=== PATIENT | female | born 1960 | race Caucasian/White ===

== ENCOUNTER 2021-11-15 14:08 | Emergency (ER) | payer SELFPAY ==
[~2021-11-15] VITALS: Ht 170.2 cm; Wt 99.8 kg
[2021-11-15] MEDS ORDERED: IBUPROFEN 600 MG TAB PO STA (14:36)
[2021-11-15] MEDS ORDERED: IBUPROFEN600 MG PO (15:46)
== END 2021-11-15 17:29 | disposition home or self-care (01) ==
LOC: ER 14:17
DX: S00.33XA Contusion of nose, initial encounter (principal); S63.697A Other sprain of left little finger, initial encounter; W06.XXXA Fall from bed, initial encounter; Y93.84 Activity, sleeping; Y92.092 Bedroom in other non-institutional residence as the place of occurrence of the external cause; I10 Essential (primary) hypertension; Z85.828 Personal history of other malignant neoplasm of skin
CPT/HCPCS: 70486; 99282